=== PATIENT | male | born 1960 | race Caucasian/White ===

== ENCOUNTER 2018-09-13 18:53 | Inpatient (IN) | payer SELFPAY ==
[~2018-09-13] VITALS: Ht 172.7 cm; Wt 85.7 kg
[2018-09-13 19:01] VITALS: BP 150/99
--- NOTE | 2018-09-13 19:30 | NUR ---
58 YO M BIB SELF AND PRESENTS TO ED C/O INTERMITTENT VERTIGO, GENERALIZED WEAKNESS, MINOR 2/10 TINGLING CHEST PAINS THAT COME AND GO AND PT STATES "NUMBNESS AND TINGLING ALL OVER MY BODY BUT ESPECIALLY IN MY HEAD" X 2 WEEKS. PT STATES "I'M AFRAID THAT MY BRAIN ISN'T GETTING ENOUGH OXYGEN". PT REPORTS THAT HE HAS TROUBLE WALKING BECAUSE HE FEELS LIKE THE ROOM IS SPINNING AND ALSO REPORTS NOT WANTING TO INTERACT WITH PEOPLE. -- PT IS AWAKE, A/O X 4, EYES PERRLA. SPEECH IS CLEAR. FACIAL SYMMETRY IN TACT. EQUAL STRENGTH NOTED +4 EXTREMETIES. -- ANSWERS QUESTIONS APPROPRIATELY. PT APPEARS ANXIOUS. -- SKIN PINK, WARM, DRY. BREATHING EVEN, UNLABORED. PMH-- HYPOTHYROIDISM RX-- LEVOTHYROXINE, POPPY
--- NOTE | 2018-09-13 20:00 | NUR ---
DR. CUADRA EVALUATING AT BEDSIDE.
[2018-09-13] MEDS ORDERED: MECLIZINE 25 MG TAB PO ONE (20:05)
--- NOTE | 2018-09-13 20:12 | NUR ---
PT TAKEN TO CT VIA WC.
--- NOTE | 2018-09-13 20:13 | NUR ---
PT WENT TO RAD
--- NOTE | 2018-09-13 20:18 | NUR ---
PT RETURNED FROM CT.
--- NOTE | 2018-09-13 20:25 | NUR ---
EKG DONE AT BEDSIDE BY RN.
--- NOTE | 2018-09-13 20:30 | NUR ---
LAB AT BEDSIDE
[2018-09-13 20:36] LABS: BASOPHILS # (AUTO) 0.1 K/uL (0.00-0.22); BASOPHILS % (AUTO) 0.9 % (0.0-2.0); EOSINOPHILS # (AUTO) 0.3 K/uL (0-0.4); HEMATOCRIT 46.3 % (36-52); HEMOGLOBIN 15.6 g/dL (12.0-18.0); LYMPHOCYTES % (AUTO) 30.9 % (20.5-51.1); MEAN CORPUSCULAR HEMOGLOBIN 32 pg (27-31); MEAN CORPUSCULAR HGB CONC 34 g/dL (33-37); MEAN CORPUSCULAR VOLUME 94.2 fL (80-94); MONOCYTES # (AUTO) 0.6 K/uL (0.8-1.0); MONOCYTES % (AUTO) 9.6 % (1.7-9.3); NEUTROPHILS # (AUTO) 3.6 K/uL (1.8-7.7); NEUTROPHILS % (AUTO) 54.6 % (42.2-75.2); PLATELET COUNT (AUTO) 173 K/uL (140-450); RED BLOOD CELL COUNT(AUTO) 4.92 MIL/uL (4.20-6.10); RED CELL DISTRIBUTION WIDTH 13.4 % (11.6-13.7); WHITE BLOOD COUNT (AUTO) 6.5 K/uL (4.8-10.8)
[2018-09-13 20:48] LABS: ANION GAP 10.5 (8-16); CARBON DIOXIDE 27.5 mmol/L (21-32); CREATININE 1.1 mg/dL (0.7-1.3)
[2018-09-13 20:54] LABS: ALBUMIN 3.6 g/dL (3.4-5.0); TOTAL BILIRUBIN 0.2 mg/dL (0.0-1.0)
--- NOTE | 2018-09-13 21:25 | NUR ---
PT TAKEN TO XRAY VIA WC.
[2018-09-13] MEDS: NACL 0.9% 1,000 ML IV SCH (22:21)
[2018-09-13] MEDS ORDERED: DOCUSATE SODIUM 100 MG GELCAP PO PRN (22:25)
[2018-09-13] MEDS ORDERED: ACETAMINOPHEN 325 MG TAB PO PRN (22:25)
[2018-09-13] MEDS ORDERED: MORPHINE SULFATE 2 MG/ML SYR IVP PRN (22:25)
[2018-09-13] MEDS ORDERED: ONDANSETRON 4 MG/2 ML VIAL IM/IVP PRN (22:25)
[2018-09-13] MEDS ORDERED: LORazepam 2 MG/ML VIAL IM/IVP PRN (22:25)
[2018-09-13] MEDS ORDERED: NITROGLYCERIN 0.4 MG TAB SL PRN (22:25)
--- NOTE | 2018-09-13 22:30 | NUR ---
PT RESTING COMFORTABLY IN BED WITH VSS. PT STATES MECLIZINE HELPED TO RELIEVE VERTIGO WHILE SITTING STILL BUT STILL FEELS DIZZY WHEN MOVING. SKIN PINK, WARM, DRY. BREATHING EVEN, UNLABORED.
[2018-09-13] MEDS ORDERED: MACA500C2 PO (22:50)
[2018-09-13] MEDS ORDERED: [UNRECOGNIZED DRUG - CODE] PO (22:50)
[2018-09-13 22:55] VITALS: BP 131/92
[2018-09-13] MEDS ORDERED: LEVOTHYROXINE 0.075 MG TAB PO SCH (23:00)
--- NOTE | 2018-09-13 23:00 | NUR ---
PT BROUGHT UP TO UNIT VIA GURNEY TO ROOM 112 BY EM EMT AND MALACHI MANAGER SPANISH NURSE. PT AMBULATED TO BED A WITH STAND BY ASSISTANCE. PT IS AOX4 WITH SKIN INTACT. HE HAS AN 18G ON LEFT AC, WHICH IS INTACT AND FLUSHED PATENT. PT HAS NO C/O OF PAIN ONLY SOME DIZZINESS AND PT SAID THAT IT HAS IMPROVED SINCE BEING MEDICATED WITH MECLIZINE IN ER. VITAL SIGNS FOLLOWS T 97.9 P 68 R 18 B/P 131/92. 02 97% ON ROOM AIR. MD LARA ORDERED N/S TO RUN A 80 MLS/HR. ALSO ORDERED LOPRESSOR DUE TO PT INCREASED B/P WELL SYNTHROID WHICH PT HAS DECLINED AT THIS TIME.
[2018-09-13 23:02] LABS: PROTHROMBIN TIME 9.3 secs (10.8-13.4)
--- NOTE | 2018-09-13 23:05 | NUR ---
Patient will be admitted to care of Dr. Conklin. Admited to TELE. Will go to room 112A. Belongings list completed. Report to PARMINDER Osorio.
[2018-09-13 23:10] LABS: LIPASE 159 U/L (73-393); MAGNESIUM 2.2 mg/dL (1.8-2.4); PHOSPHORUS 3.2 mg/dL (2.5-4.9); THYROID STIMULATING HORMONE 28.62 uIU/mL (0.34-3.74)
[2018-09-13] MEDS ORDERED: LEVO0.155 PO (23:23)
[2018-09-13] MEDS ORDERED: METOPROLOL 25 MG TAB PO SCH (23:30)
[2018-09-13 23:36] LABS: APPEARANCE,URINE CLEAR (CLEAR); BILIRUBIN,URINE NEGATIVE (NEGATIVE); BLOOD, URINE NEGATIVE (NEGATIVE); COLOR,URINE YELLOW (YELLOW); LEUKOCYTE ESTERASE ,URINE NEGATIVE (NEGATIVE); NITRITE, URINE NEGATIVE (NEGATIVE); UGLUCOSE NEGATIVE (NEGATIVE)
[2018-09-13 23:39] LABS: BARBITURATE, URINE NEG. ng/ml (NEG <=200); BENZODIAZEPINE, URINE NEG. ng/mL (NEG <=200); CANNABINOID, URINE NEG. ng/mL (NEG <=50); COCAINE, URINE NEG. ng/mL (NEG <=300); OPIATE, URINE NEG. ng/mL (NEG <=2000); PHENCYCLIDINE SCREEN,URINE NEG. ng/mL (NEG <=25)
--- NOTE | 2018-09-14 | NUR ---
CHEST X RAY DONE AT BEDSIDE.
[2018-09-14] MEDS ORDERED: MECLIZINE 25 MG TAB PO PRN (02:55)
[2018-09-14 04:00] VITALS: BP 106/74
--- NOTE | 2018-09-14 04:00 | NUR ---
PT IN BED ALL FALLS PRECAUTIONS IN PLACE. IV SITE INTACT AND RUNNING N/S AT 80MLS/HR. ALL V/S IN NORMAL RANGE.
[2018-09-14 05:06] LABS: BASOPHILS # (AUTO) 0.1 K/uL (0.00-0.22); BASOPHILS % (AUTO) 1.5 % (0.0-2.0); EOSINOPHILS # (AUTO) 0.3 K/uL (0-0.4); EOSINOPHILS % (AUTO) 4.8 % (0.0-4.0); HEMATOCRIT 46.2 % (36-52); HEMOGLOBIN 15.5 g/dL (12.0-18.0); LYMPHOCYTES # (AUTO) 2.1 K/uL (2.0-11.5); LYMPHOCYTES % (AUTO) 33.8 % (20.5-51.1); MEAN CORPUSCULAR HEMOGLOBIN 32 pg (27-31); MEAN CORPUSCULAR HGB CONC 34 g/dL (33-37); MEAN CORPUSCULAR VOLUME 94.8 fL (80-94); MONOCYTES # (AUTO) 0.6 K/uL (0.8-1.0); MONOCYTES % (AUTO) 9.8 % (1.7-9.3); NEUTROPHILS # (AUTO) 3.1 K/uL (1.8-7.7); NEUTROPHILS % (AUTO) 50.1 % (42.2-75.2); PLATELET COUNT (AUTO) 162 K/uL (140-450); RED BLOOD CELL COUNT(AUTO) 4.87 MIL/uL (4.20-6.10); RED CELL DISTRIBUTION WIDTH 13.3 % (11.6-13.7); WHITE BLOOD COUNT (AUTO) 6.1 K/uL (4.8-10.8)
[2018-09-14 05:34] LABS: ANION GAP 12.1 (8-16); CARBON DIOXIDE 29.9 mmol/L (21-32)
[2018-09-14 05:45] LABS: MAGNESIUM 2.3 mg/dL (1.8-2.4); PHOSPHORUS 3.7 mg/dL (2.5-4.9); THYROID STIMULATING HORMONE 35.73 uIU/mL (0.34-3.74)
[2018-09-14] MEDS ORDERED: LEVOTHYROXINE 0.075 MG TAB PO SCH ×2 (06:30→11:03)
--- NOTE | 2018-09-14 06:30 | NUR ---
PT GIVEN ORDERED SYNTHROID. NO C/O VOICED ALL FALLS PRECAUTIONS IN PLACE.
--- NOTE | 2018-09-14 07:30 | NUR ---
REPORT GIVEN TO SANTOS ZURITA DAYSHIFT NURSE AT BEDSIDE FOR CONTINUITY OF CARE, PT IN STABLE CONDITION.
--- NOTE | 2018-09-14 07:32 | NUR ---
RECEIVED REPORT FROM WIRELESS NETWORK ENGINEER NURSE. PT AAOX4 IN BED. RESPIRATIONS EVEN AND UNLABORED ON RA, NO SIGNS OF SOB. NO C/O PAIN AT THIS TIME. ABD SOFT, BS ACTIVE. SKIN IS INTACT, WARM TO TOUCH. IV ON LT AC 18 GA RUNNING IVF PER ORDER. PT ON FALL RISK PRECAUTIONS, SAFETY MEASURES IN PLACE. NOTED YELLOW SIGN POSTED ON DOOR, YELLOW GOWN, YELLOW WRISTBAND, BED ON LOW POSITION, CALL LIGHT WITHIN REACH. REVIEWED POC WITH PT, PT VERBALIZED UNDERSTANDING. WILL CONTINUE TO MONITOR.
[2018-09-14 08:00] VITALS: BP 117/75
--- NOTE | 2018-09-14 09:22 | NUR ---
PT VERBALIZED THAT I AM ABLE TO SHARE INFORMATION WITH GIRLFRIEND ANDREI. UPDATED PT'S GIRLFRIEND REGARDING PT'S CONDITION.
[2018-09-14] MEDS: ASPIRIN 81 MG TAB.CHEW PO SCH (09:48)
[2018-09-14] MEDS: busPIRone 5 MG TAB PO SCH (09:48)
[2018-09-14] MEDS: LISINOPRIL 5 MG TAB PO SCH (09:48)
[2018-09-14] MEDS: ATORVASTATIN 20 MG TAB PO SCH (09:49)
[2018-09-14] MEDS: METOPROLOL 25 MG TAB PO SCH ×2 (09:49→20:38)
[2018-09-14] MEDS: PANTOPRAZOLE 40 MG TABEC PO SCH (09:51)
[2018-09-14] MEDS: FLUTICASONE NASAL 50 MCG/ACTUATION 16 GM BTL NS SCH ×2 (09:51→20:37)
--- NOTE | 2018-09-14 10:00 | NUR ---
PT REQUESTED TO BE ASSISTED TO RESTROOM. NO C/O PAIN AT THIS TIME. PT REPORTS MILD DIZZINESS, BUT ABLE TO AMBULATE. WILL CONTINUE TO MONITOR.
[2018-09-14] MEDS: NACL 0.9% 1,000 ML IV SCH (10:13)
[2018-09-14] MEDS ORDERED: SODIUM CHLORIDE 0.65% 45 ML BTL NS SCH (10:32)
--- NOTE | 2018-09-14 10:50 | NUR ---
PT IS ABLE TO WALK IN HALLWAY WITH IV POLE. INSTRUCTED PT TO FIND THE CLOSEST CHAIR TO SIT IN AND HOLD ON TO SIDE RAILS WHEN HAVING DIZZINESS WHILE AMBULATING. PT AGREES AND VERBALIZES UNDERSTANDING. WILL CONTINUE TO MONITOR.
--- NOTE | 2018-09-14 11:50 | NUR ---
DISCUSSED T4 LEVELS WITH PT AND EXPLAINED THAT IT WILL BE MONITORED AND SYNTHROID DOSE WILL BE ADJUSTED BY PHYSICIAN NEEDED. PT VERBALIZED UNDERSTANDING, ALL QUESTIONS ANSWERED AND CLARIFIED. PT GIVEN ORANGE JUICE PER REQUEST. NO SIGNS OF DISTRESS AT THIS TIME.
[2018-09-14 12:00] VITALS: BP 117/79
[2018-09-14 13:07] LABS: CHOL/HDL RATIO 5.7 (1-4.5)
--- NOTE | 2018-09-14 13:50 | NUR ---
LEFT VOICEMAIL FOR DR. JADE REGARDING PT REQUEST TO DISCUSS RESULT OF US OF CAROTID ARTERY. AWAITING CALL BACK.
[2018-09-14 16:00] VITALS: BP 107/82
[2018-09-14] MEDS: HYDROcodone/APAP 5/325 MG 1 TAB TAB PO PRN (17:04)
--- NOTE | 2018-09-14 18:33 | NUR ---
LEFT VOICEMAIL FOR DR. BAUTISTA REGARDING NEURO CONSULT D/T PT'S VERTIGO. AWAITING CALL BACK. WILL CONTINUE TO MONITOR.
--- NOTE | 2018-09-14 19:15 | NUR ---
ENDORSED PT TO CLIENT EXPERIENCE MANAGER NURSE FOR CONTINUITY OF CARE. PT HAS NO SIGNS OF DISTRESS AT THIS TIME.
--- NOTE | 2018-09-14 19:16 | NUR ---
RECEIVED BEDSIDE REPORT FROM BECKY GRAHAM. PT A/O X4. PERSON, PLACE, TIME AND EVENT. ABLE TO MAKE NEEDS KNOWN. DISCUSSED PLAN OF CARE. VERBALIZED UNDERSTANDING. STANDARD PRECAUTIONS. FALL PRECAUTIONS IN PLACE. ROOM AIR. NO SIGNS OF RESP DISTRESS. SKIN IS INTACT. L AC 18G INFUSING NS @80. PATENT AND INTACT. CONTINENT. AMBULATORY. DENIES PAIN. BED IN LOWEST POSITION. CALL LIGHT WITHIN REACH. WILL CONTINUE TO MONITOR.
[2018-09-14 20:00] VITALS: BP 107/61
[2018-09-14] MEDS: SODIUM CHLORIDE 0.65% 45 ML BTL NS SCH (20:38)
--- NOTE | 2018-09-14 20:38 | NUR ---
ADMINISTERED MEDS SCHEDULED. EDUCATED ON SIDE EFFECTS. VERBALIZED UNDERSTANDING. TOLERATED WELL. WILL CONTINUE TO MONITOR.
--- NOTE | 2018-09-14 22:13 | NUR ---
PT SITTING UP IN BED RESTING. NO SIGNS OF DISTRESS. NO COMPLAINTS AT THIS TIME. DENIES PAIN. WILL CONTINUE TO MONITOR.
[2018-09-15] VITALS: BP 104/71
--- NOTE | 2018-09-15 00:11 | NUR ---
REPLACED IVF WITH NEW NS BAG @80. TOLERATED WELL. VITALS WNL. WILL CONTINUE TO MONITOR.
[2018-09-15] MEDS: NACL 0.9% 1,000 ML IV SCH ×2 (00:12→11:51)
--- NOTE | 2018-09-15 02:49 | NUR ---
PT IS SLEEPING. EASILY AROUSABLE. DENIES PAIN. NO SIGNS OF DISTRESS. ABLE TO MAKE NEEDS KNOWN. WILL CONTINUE TO MONITOR.
[2018-09-15 04:00] VITALS: BP 95/80
[2018-09-15] MEDS: HYDROcodone/APAP 5/325 MG 1 TAB TAB PO PRN ×2 (04:27→10:00)
--- NOTE | 2018-09-15 04:27 | NUR ---
PT COMPLAINS OF NECK PAIN 6/10 PAIN SCALE. WILL MEDICATE WITH NORCO PRN. WILL REASSESS AND CONTINUE TO MONITOR.
--- NOTE | 2018-09-15 05:00 | NUR ---
PT ASKED TO BE DISCONNECTED FROM IV FLUIDS FOR A COUPLE OF HOURS DUE TO IRRITABILITY FROM BEEPING FROM HIGH PRESSURE ALARM DUE TO CONTINUOUS BENDING OF THE ARM. EDUCATED ON HOW IV PUMP WORKS AND IMPORTANCE OF IV FLUIDS. DISCONNECTED AND WILL RE CONNECT WITHIN AN HOUR. WILL CONTINUE TO MONITOR.
[2018-09-15] MEDS: LEVOTHYROXINE 0.075 MG TAB PO SCH (06:34)
--- NOTE | 2018-09-15 06:52 | NUR ---
RECONNECTED TO IVF @80. ADMINISTERED MEDS SCHEDULED. EDUCATED ON SIDE EFFECTS. VERBALIZED UNDERSTANDING. WILL CONTINUE TO MONITOR.
--- NOTE | 2018-09-15 06:53 | NUR ---
WILL ENDORSE PT TO DAYSHIFT RN FOR CONTINUITY OF CARE. PT IS IN STABLE CONDITION. VITALS ARE WNL. BED IN LOWEST POSITION. CALL LIGHT WITHIN REACH. WILL CONTINUE TO MONITOR.
--- NOTE | 2018-09-15 07:20 | NUR ---
RECEIVED REPORT FROM COTTON WASHER NURSE YUVAL FOR CONTINUITY OF CARE. PT IN STABLE CONDITION. RESPIRATIONS EVEN AND UNLABORED. IV INTACT AND PATENT. SAFETY MEASURES IN PLACE. BED IN LOW POSITION. CALL LIGHT AT BEDSIDE. WILL CONTINUE TO MONITOR.
[2018-09-15 08:00] VITALS: BP 115/74
[2018-09-15 08:16] LABS: T4 (THYROXINE) 6.6 ug/dL (4.5-12.0)
--- NOTE | 2018-09-15 08:37 | NUR ---
PATIENT HAS BEEN SCREENED AND CATEGORIZED MODERATE NUTRITION RISK. PATIENT WILL BE SEEN WITHIN 3-5 DAYS OF ADMISSION. 09/16/18 09/18/[address]
[2018-09-15] MEDS ORDERED: FLONAS NS (08:53)
[2018-09-15] MEDS ORDERED: MECL-272 PO (08:53)
[2018-09-15] MEDS: busPIRone 5 MG TAB PO SCH ×2 (09:00→09:59)
[2018-09-15] MEDS: LISINOPRIL 5 MG TAB PO SCH (09:00)
[2018-09-15] MEDS: METOPROLOL 25 MG TAB PO SCH (09:00)
[2018-09-15] MEDS: PANTOPRAZOLE 40 MG TABEC PO SCH (09:00)
--- NOTE | 2018-09-15 09:33 | NUR ---
PT LYING IN BED SLEEPING AT THIS TIME. RESPIRATIONS EVEN AND UNLABORED. BED IN LOW POSITION. CALL LIGHT AT BEDSIDE. WILL CONTINUE TO MONITOR.
[2018-09-15] MEDS: ASPIRIN 81 MG TAB.CHEW PO SCH (09:59)
[2018-09-15] MEDS: ATORVASTATIN 20 MG TAB PO SCH (09:59)
[2018-09-15] MEDS: FLUTICASONE NASAL 50 MCG/ACTUATION 16 GM BTL NS SCH ×2 (10:16→20:26)
[2018-09-15] MEDS: SODIUM CHLORIDE 0.65% 45 ML BTL NS SCH ×2 (10:17→20:27)
[2018-09-15] MEDS: MECLIZINE 25 MG TAB PO SCH ×3 (10:17→17:08)
--- NOTE | 2018-09-15 11:10 | NUR ---
NEW ORDER FOR MRI OF THE BRAIN WITHOUT CONTRAST AT [facility], PER MRI NURSE YUNG [phone] AVAILABLE TIME FOR TODAY IS [id number] ONLY. SPOKE WITH PATIENT AT BEDSIDE WITH DR ALVAREZ TO DISCUSS THE NEED OF MRI AND ASK PATIENT IF HE IS WILLING TO PAY THE COST SINCE HE IS SELF PAY. VERIFIED WITH [facility] THE INSURANCE AND PATIENT IS SELF PAY. ESTIMATED COST OF MRI WITHOUT CONTRAST PER [facility] IS $2947.00. PATIENT MADE AWARE OF THE COST AND AGREED TO PAY BY INSTALLMENT. NOTIFY PATIENT ALSO THAT HE WILL BE RESPONSIBLE TO PAY FOR TRANSPORTATION GOING TO [facility] AND COMING BACK TO [facility]. PATIENT AGREED.
--- NOTE | 2018-09-15 11:44 | NUR ---
CONSENT SIGNED FOR MRI BRAIN WITHOUT CONTRAST AT [facility].
--- NOTE | 2018-09-15 11:45 | NUR ---
CALLED [facility] AND SPOKE TO Eponym TECH . PT IS OKAY FOR MRI PER QUESTIONNAIRE.
[2018-09-15 12:00] VITALS: BP 109/72
--- NOTE | 2018-09-15 12:20 | NUR ---
INFORMED PATIENT THAT TRANSPORTATION IS NOT AVAILABLE TO TRANSPORT HIM TO [facility] FOR MRI ON THE DESIGNATED TIME, NEXT AVAILABLE TIME IS TOMORROW @8AM. DR PRINGLE MADE AWARE.
--- NOTE | 2018-09-15 13:03 | NUR ---
Called [facility] and no availability for today. Called [facility] and the first availability for picker box operator is at 1400. Called [facility] [employer] [facility] and the first availability for picker box operator is at 1300. Spoke with Merry from [facility], the last appointment for MRI is at 1230. They can do the MRI tomorrow morning. Informed Dr. Kumari that [facility] can't do the MRI after 1230. Dr. Kumari will talk with the pt. Addendum: 09/15/18 at 1334 by Aleisha Carbajal CM Called to arrange for transportations at [address] [facility] Jonas the rates for [facility] will cost $[address] Jonas will put a new order for transfer on [facility].
[2018-09-15] MEDS ORDERED: METOCLOPRAMIDE 10 MG/2 ML INJ VIAL IVP PRN (13:15)
--- NOTE | 2018-09-15 13:57 | NUR ---
RETRIEVED TURKEY SANDWICH FROM [facility] PER PT REQUEST. PT IN STABLE CONDITION. BED IN LOW POSITION. CALL LIGHT AT BEDSIDE. WILL CONTINUE TO MONITOR.
--- NOTE | 2018-09-15 14:00 | NUR ---
CALLED [facility] SPOKE TO GAURAV, , BOOKED MRI FOR TOMORROW AT 0800.
--- NOTE | 2018-09-15 15:10 | NUR ---
CALLED [facility] SPOKE TO LELIA, TRANSPORTATION ARRANGE TO SALES AND PRODUCTION MANAGER AT 0730 FOR MRI TO [facility] BUT THEY ARE NOT AVAILABLE.
--- NOTE | 2018-09-15 15:24 | NUR ---
CALLED [facility] SPOKE WITH KRISTINE, , TRANSPORTATION ARRANGE TO VALIDATION ANALYST PATIENT FOR MRI TO [facility] TOMORROW AT 0730. SARAH CHARGE NURSE MADE AWARE.
--- NOTE | 2018-09-15 15:31 | NUR ---
PT LYING IN BED TALKING ON THE PHONE IN STABLE CONDITION. RESPIRATIONS EVEN AND UNLABORED. BED IN LOW POSITION. CALL LIGHT AT BEDSIDE. WILL CONTINUE TO MONITOR.
[2018-09-15 16:00] VITALS: BP 116/79
--- NOTE | 2018-09-15 16:59 | NUR ---
CONTACTED [facility], SPOKE WITH JANE, STATED THEY RECEIVED PT'S MRI QUESTIONAIRE. FAX CONFIRMATION ATTACHED TO PT'S CHART.
--- NOTE | 2018-09-15 17:35 | NUR ---
PT TALKING TO AT BEDSIDE IN STABLE CONDITION. RESPIRATIONS EVEN AND UNLABORED. BED IN LOW POSITION. CALL LIGHT AT BEDSIDE. WILL CONTINUE TO MONITOR.
--- NOTE | 2018-09-15 19:15 | NUR ---
GAVE REPORT TO GROUND CREW LINES PERSON NURSE MAY FOR CONTINUITY OF CARE. PT IN STABLE CONDITION.
--- NOTE | 2018-09-15 19:16 | NUR ---
RECEIVED REPORT FROM AM NURSEKIERAN. PT AWAKE, ALERT AND ORIENTED X 4. PT ABLE TO ANSWER QUESTIONS AND FOLLOW COMMANDS. VISIBLE CHEST RISE AND FALL ON ROOM AIR, NO VISIBLE SIGNS OF DISTRESS. PT LEFT A/C 18G SALINE LOCKED, INTACT AND ASYMPTOMATIC. PT ON FALL PRECAUTIONS, YELLOW SOCKS, BED IN LOW POSITION, BED ALARM ON. CALL LIGHT WITHIN REACH.
--- NOTE | 2018-09-15 20:26 | NUR ---
NASAL MEDICATIONS ADMINISTERED. PT TOLERATED WELL.
--- NOTE | 2018-09-15 21:22 | NUR ---
BENADRYL GIVEN FOR VERTIGO. PT REFUSED HEPARIN INJECTION. PT STATED THAT HE "DOESN'T NEED THE MEDICATION BECAUSE I CAN WALK." BED ALARM WAS NOT ON AT THIS TIME. REMINDED PT THAT HE IS ON FALL PRECAUTIONS DUE TO HIS VERTIGO. PT RESTATED THAT HE CAN "WALK BY MYSELF TO THE BATHROOM." BED ALARM PLACED ON. PT PROVIDED URINAL AND PLACED AT BEDSIDE. WILL CONTINUE TO MONITOR.
--- NOTE | 2018-09-16 | NUR ---
VITALS TAKEN. PT SLEEPING BUT EASILY AWAKEN BY VOICE. VISIBLE CHEST RISE AND FALL. NO VISIBLE SIGNS OF DISTRESS. PT BED ALARM NOT ON. PT BED IN LOWEST POSITION, YELLOW GOWN AND SOCKS, BED ALARM PLACED BACK ON FOR FALL PRECAUTIONS. PT REMINDED HE IS ON FALL PRECAUTIONS DUE TO VERTIGO.
[2018-09-16 00:05] VITALS: BP 90/68
--- NOTE | 2018-09-16 02:00 | NUR ---
ROUNDED ON PT. PT SLEEPING, VISIBLE CHEST RISE AND FALL. NO SIGNS OF DISTRESS NOTED.
--- NOTE | 2018-09-16 04:30 | NUR ---
ROUNDED ON PT. PT SLEEPING. NO VISIBLE SIGNS OF DISTRESS. BREATHING EQUAL AND UNLABORED. CALL LIGHT WITHIN REACH.
[2018-09-16] MEDS: LEVOTHYROXINE 0.075 MG TAB PO SCH (06:39)
--- NOTE | 2018-09-16 06:39 | NUR ---
MEDICATIONS ADMINISTERED. PT SITTING UP AWAKE IN BED. NO C/O DISTRESS. CALL LIGHT WITHIN REACH.
--- NOTE | 2018-09-16 07:10 | NUR ---
ENDORSED PT TO AM NURSE. PT IN STABLE CONDITION.
--- NOTE | 2018-09-16 07:15 | NUR ---
RECEIVED HAND OFF REPORT FROM HEALTH SERVICES MANAGER NURSE PT IS AWAKE IN BED. PT IS READY TO GO TO [place] FOR MRI VIA TRANSPORT
[2018-09-16] MEDS ORDERED: ATOR20TA40 PO (07:36)
--- NOTE | 2018-09-16 07:40 | NUR ---
PT LEFT WITH TRANSPORTATION TO [facility] FOR MRI
[2018-09-16 08:00] VITALS: BP 110/76
[2018-09-16] MEDS: SODIUM CHLORIDE 0.65% 45 ML BTL NS SCH (09:00)
--- NOTE | 2018-09-16 10:20 | NUR ---
PT ARRIVED BACK ON THE UNIT FROM [place] PT APPEARS STABLE AND IN NO APPARENT DISTRESS. ALL SAFETY MEASURES ARE IN PLACE WILL CONTINUE TO MONITOR. PT DID NO HAVE MRI DONE. CALLED DR. PRINGLE AND LEFT VOICEMAIL ABOUT PT NOT HAVING MRI DONE
--- NOTE | 2018-09-16 10:25 | NUR ---
SW attempted to conduct assessment with patient. According to Charge Nurse, patient is in [place] to receive an MRI. SW will follow up.
[2018-09-16] MEDS: busPIRone 5 MG TAB PO SCH (10:55)
[2018-09-16] MEDS: ASPIRIN 81 MG TAB.CHEW PO SCH (10:55)
[2018-09-16] MEDS: PANTOPRAZOLE 40 MG TABEC PO SCH (10:55)
[2018-09-16] MEDS: MECLIZINE 25 MG TAB PO SCH (10:56)
[2018-09-16] MEDS: ATORVASTATIN 20 MG TAB PO SCH (10:56)
[2018-09-16] MEDS: FLUTICASONE NASAL 50 MCG/ACTUATION 16 GM BTL NS SCH (10:57)
--- NOTE | 2018-09-16 11:00 | NUR ---
PT STATED HE WISHED TO SPEAK WITH A CONCERNING HIS PLAN OF CARE NOT THAT HE WAS UNABLE TO COMPLETE HIS MRI. PT SPOKE WITH DR. GAINES SHE STATED SHE WAS GOING TO SPEAK WITH THE NEUROLOGIST AND COME BACK
--- NOTE | 2018-09-16 13:19 | NUR ---
PT LEFT AMA. DR. GAINES IS AWARE. REMOVED PT ID BAND AND IV. IV CATH TIP INTACT. PT APPEARS STABLE AND IN NO APPARENT DISTRESS. PT IS AWARE OF HIS MEDICAL CONCERNS. PT SIGNED AMA FORM. PT ACCOMPANIED HIM OFF THE UNIT VIA WHEELCHAIR. PT LEFT WITH ALL PERSONAL BELONGINGS
== END 2018-09-16 13:15 | disposition left against medical advice (07) | DRG 74 ==
LOC: MED 18:53 → MTU 22:21
PROVIDERS: ADMIT General Practice; ATTEND General Practice
DX: G90.8 Other disorders of autonomic nervous system (principal); Z79.899 Other long term (current) drug therapy; I10 Essential (primary) hypertension; E03.9 Hypothyroidism, unspecified; K21.9 Gastro-esophageal reflux disease without esophagitis; G47.33 Obstructive sleep apnea (adult) (pediatric); Z98.1 Arthrodesis status; F41.1 Generalized anxiety disorder; Z91.19 Patient's noncompliance with other medical treatment and regimen; R23.3 Spontaneous ecchymoses; H81.10 Benign paroxysmal vertigo, unspecified ear; J32.2 Chronic ethmoidal sinusitis; M94.0 Chondrocostal junction syndrome [Tietze]; R07.89 Other chest pain; J01.20 Acute ethmoidal sinusitis, unspecified
CPT/HCPCS: 36415; 70450; 71045; 80048; 80053; 80305; 81003; 82140; 82948; 83036; 83690; 83735; 83880; 84100; 84436; 84443; 84484; 85025; 85610; 85730; 87081; 93005; 93880; 97110; 97116; 97161-GP; 99285; G0482; J1644; J2060; J2765; J7030; J8597; Q0092; Q0163